=== PATIENT | male | born 1955 | race Two or more races ===

== ENCOUNTER 2018-04-10 11:45 | Inpatient (IN) | payer OTHER ==
[2018-04-10 11:52] VITALS: BMI 25.5
--- NOTE | 2018-04-10 12:28 | HP ---
CIWA Score - CIWA Score Nausea/Vomitin Muscle Tremors: 2 Anxiety: 2 Agitation: 2 Paroxysmal Sweats: 1-Minimal Palms Moist Orientation: 0-Oriented Tacttile Disturbances: 1-Very Mild Itch/Numbness Auditory Disturbances: 1-Very Mild Visual Disturbances: 1-Very Mild Sensitivity Headache: 2-Mild CIWA-Ar Total Score: 14 Admission ROS B[facility] - HPI Chief Complaint: i need help to stop drinking alcohol Allergies/Adverse Reactions: Allergies Allergy/AdvReac Type Severity Reaction Status Date / Time Penicillins Allergy Severe Rash Verified 04/10/18 13:28 fish derived Allergy Itching Verified 04/10/18 13:28 mushroom Allergy Hives Verified 04/10/18 13:28 History of Present Illness: this 62 years old male with alcohol dependence,seeking detox,withdrawal symptom, multiple admissions in the past,keep relapsing type 2 dm non compliance hepatitis c not treated weight loss s/p abdominal surgery at age of 50 years fell 2 weeks ago pain in the left lower ribs postitive ppd test poor oral hygiene no significant period of sobriety Exam Limitations: No Limitations - Ebola screening Have you traveled outside of the country in the last 21 days: No (N) Have you had contact with anyone from an Ebola affected area: No Have you been sick,other than usual withdrawal symptoms: No Do you have a fever: No - Review of Systems Constitutional: Loss of Appetite, Malaise, Night Sweats, Changes in sleep, Weakness, Unintentional Wgt. Loss EENT: reports: Nose Congestion, Other (poor oral hygiene missing teeth) Respiratory: reports: No Symptoms reported Cardiac: reports: No Symptoms Reported GI: reports: Nausea, Abdominal cramping : reports: No Symptoms Reported Musculoskeletal: reports: Back Pain, Muscle Pain Integumentary: reports: Dryness Neuro: reports: Headache, Tremors Endocrine: reports: No Symptoms Reported Hematology: reports: No Symptoms Reported Psychiatric: reports: No Sypmtoms Reported, Judgement Intact, Mood/Affect Appropiate, Orientated x3, Depressed (anxiety,depression,insomnia) Patient History - Patient Medical History Hx Anemia: Yes (no med) Hx Asthma: No Hx Chronic Obstructive Pulmonary Disease (COPD): No Hx Cancer: No Hx Cardiac Disorders: No Hx Congestive Heart Failure: No Hx Hypertension: No Hx Hypercholesterolemia: No Hx Pacemaker: No HX Cerebrovascular Accident: No Hx Seizures: Yes (IN THE 1970s) Hx Dementia: No Hx Diabetes: Yes (NO MEDS) Hx Gastrointestinal Disorders: No Hx Liver Disease: No Hx Genitourinary Disorders: No Hx Sexually Transmitted Disorders: Yes (syphilis) Hx Renal Disease (ESRD): No Hx Thyroid Disease: No Hx Human Immunodeficiency Virus (HIV): No Hx Hepatitis C: Yes Hx Depression: Yes Hx Suicide Attempt: No Hx Bipolar Disorder: No Hx Schizophrenia: No Other Medical History: no suicidal,no homicidal,injury left rib 2 weeks ago - Patient Surgical History Past Surgical History: Yes Hx Neurologic Surgery: No Hx Cataract Extraction: No Hx Cardiac Surgery: No Hx Lung Surgery: No Hx Breast Surgery: No Hx Breast Biopsy: No Hx Abdominal Surgery: Yes (for bleeding ulcer in 70's) Hx Appendectomy: No Hx Cholecystectomy: No Hx Genitourinary Surgery: No Hx Section: No Hx Orthopedic Surgery: No Anesthesia Reaction: No - PPD History Previous Implant?: Yes Documented Results: Positive w/o proof Date: 03/24/15 Results: 15 mm PPD to be Administered?: No - Smoking Cessation Smoking history: Current every day smoker Have you smoked in the past 12 months: Yes Aproximately how many cigarettes per day: 7 Cigars Per Day: 0 Hx Chewing Tobacco Use: No Initiated information on smoking cessation: Yes 'Breaking Loose' booklet given: 04/10/18 - Substance & Tx. History Hx Alcohol Use: Yes Hx Substance Use: No Substance Use Type: Alcohol Hx Substance Use Treatment: Yes ([facility] 12/27/15 to 12/31/15) - Substances Abused Alcohol Route: Oral Frequency: Daily Amount used: 3 of 6 packs of 12 ozs of beer Age of first use: 7 Date of Last Use: 04/10/18 Family Disease History - Family Disease History Family History: Denies Admission Physical Exam [facility] - Vital Signs Vital Signs: Vital Signs - 24 hr 04/10/18 11:50 Temperature 98.3 F Pulse Rate 80 Respiratory 18 Rate Blood Pressure 138/71 - Physical General Appearance: Yes: Moderate Distress, Tremorous, Irritable, Sweating, Anxious HEENTM: Yes: Normal ENT Inspection, CEM, Pharynx Normal, Other (poor dental hygiene missing teeth) Respiratory: Yes: Lungs Clear, Normal Breath Sounds, No Respiratory Distress, Other (pain in he left lower rib,tenderness on palpation) Breast: Yes: Within Normal Limits Cardiology: Yes: Within Normal Limits, Regular Rhythm, Regular Rate, S1, S2 Abdominal: Yes: Within Normal Limits, Normal Bowel Sounds, Non Tender, Flat, Soft, Surgical Scar Genitourinary: Yes: Within Normal Limits Back: Yes: Muscle Spasm Musculoskeletal: Yes: Back pain, Muscle Pain Extremities: Yes: Tremors Neurological: Yes: hospitality internship II-XII NML intact, Fully Oriented, Alert, Motor Strength 5/5 Integumentary: Yes: Dry Lymphatic: Yes: Within Normal Limits - Diagnostic (1) Alcohol dependence with uncomplicated withdrawal Current Visit: No Status: Acute (2) Nicotine dependence Current Visit: No Status: Chronic Qualifiers: Nicotine product type: cigarettes Substance use status: uncomplicated Qualified Code(s): F17.210 - Nicotine dependence, cigarettes, uncomplicated (3) DM2 (diabetes mellitus, type 2) Current Visit: Yes Status: Acute (4) Weight loss Current Visit: Yes Status: Acute (5) Poor oral hygiene Current Visit: Yes Status: Acute (6) Seizure Current Visit: Yes Status: Acute (7) Contusion of left chest wall Current Visit: Yes Status: Acute Cleared for Admission [facility] - Detox or Rehab [facility] Level of Care: Medically Managed Detox Regimen/Protocol: Librium [facility] Breath Alcohol Content Breath Alcohol Content: 0.135 Urine Drug Screen - Results Drug Screen Negative: Yes
[2018-04-10] MEDS ORDERED: LOPERAMIDE HCL 2 MG CAPSULE PO PRN (12:44)
[2018-04-10] MEDS ORDERED: P-EPHED 60MG/TRIPROLIDI 2.5MG TABLET PO PRN (12:44)
[2018-04-10] MEDS ORDERED: MAG HYDROX/AL HYDROX/SIMETH 30 ML UNIT-DOSE CUP PO PRN (12:44)
[2018-04-10] MEDS ORDERED: MENTHOL/PHENOL 1 EACH UD MM PRN (12:44)
[2018-04-10] MEDS ORDERED: guaiFENesin/D-METHORPHAN HB 10 ML UNIT-DOSE CUPS PO PRN (12:44)
[2018-04-10] MEDS ORDERED: MAGNESIUM CITRATE 300 ML BOTTLE PO PRN (12:44)
[2018-04-10] MEDS ORDERED: MAGNESIUM HYDROX 2400MG/30ML ORAL SUSPENSION 30 ML CUP PO PRN (12:44)
[2018-04-10] MEDS ORDERED: IBUPROFEN 400 MG TABLET (FP) PO PRN (12:44)
[2018-04-10] MEDS: chlordiazePOXIDE HCL 25 MG CAPSULE PO PRN (14:58)
[2018-04-10] MEDS: NICOTINE 14 MG/24 HOURS TOPICAL PATCH TD SCH (15:00)
[2018-04-10] MEDS ORDERED: COLLOIDAL OATMEAL 1 BAR EACH TP PRN (15:01)
[2018-04-10 17:38] LABS: URINE APPEARANCE CLEAR; URINE BILIRUBIN NEGATIVE (<2.0 mg/dL); URINE COLOR YELLOW; URINE GLUCOSE (UA) NEGATIVE (NEGATIVE); URINE KETONE NEGATIVE (NEGATIVE); URINE LEUK ESTERASE NEGATIVE (NEGATIVE); URINE NITRITE NEGATIVE (NEGATIVE); URINE PROTEIN NEGATIVE (NEGATIVE); URINE UROBILINOGEN NEGATIVE mg/dL (0.2-1.0)
[2018-04-10] MEDS: chlordiazePOXIDE HCL 25 MG CAPSULE PO SCH ×2 (17:41→22:42)
[2018-04-10] MEDS ORDERED: CYCLOBENZAPRINE HCL 10 MG TABLET (FP) PO ONE (18:31)
[2018-04-10] MEDS: LIDOCAINE 5% TOPICAL PATCH TP SCH (19:58)
[2018-04-10] MEDS: THIAMINE HCL 100 MG TABLET (FP) PO SCH (22:42)
[2018-04-10] MEDS: ACETAMINOPHEN 325 MG TABLET (FP) PO PRN (22:42)
[2018-04-10] MEDS: MELATONIN 5 MG TABLETS PO PRN (22:43)
[2018-04-10] MEDS: IBUPROFEN 600 MG TABLET (FP) PO PRN (22:45)
[2018-04-10] MEDS: LIDOCAINE PATCH REMOVAL MC SCH (22:45)
[2018-04-11] MEDS: chlordiazePOXIDE HCL 25 MG CAPSULE PO SCH ×4 (05:18→22:19)
[2018-04-11] MEDS: IBUPROFEN 600 MG TABLET (FP) PO PRN (05:18)
--- NOTE | 2018-04-11 07:37 | CONSULT ---
[facility] Psychiatric Consult - Data Date of interview: 04/11/18 Admission source: [facility] Identifying data: This is a 62 years old male, single, unemployed, homeless, with no financial support, ambulates with Cane, with psychiatric hospitalization history, with alcohol , cannabis and nicotine dependence, seeking detox and reporting alcohol withdrawal symptoms,. Denies suicdial, homicidal history. Substance Abuse History: Smoking history: Current every day smoker. Have you smoked in the past 12 months: Yes. Aproximately how many cigarettes per day: 7. Cigars Per Day: 0. Hx Chewing Tobacco Use: No. Initiated information on smoking cessation: Yes. 'Breaking Loose' booklet given: 04/10/18. - Substance & Tx. History. Hx Alcohol Use: Yes. Hx Substance Use: No. Substance Use Type : Alcohol. Hx Substance Use Treatment: Yes ([facility] 12/27/15 to 12/31/15). - Substances Abused. Alcohol. Route: Oral. Frequency: Daily. Amount used: 3 of 6 packs of 12 ozs of beer. Age of first use: 7. Date of Last Use: Medical History: HepC+, PPD + history, S/P Abdomina, surgery on above 12 years ago, Syncope history, Seizure history, DM-2, HTN, Asthma, Psychiatric History: Patient reports history of depression and anxiety, reports unclear psychiatric admission on about 5 years ago at [facility], reports no medications takoing prior to admission. Denies suicdial, homicidal history Physical/Sexual Abuse/Trauma History: Denies Additional Comment: Obnservation. Detox Unit Care Protocol Mental Status Exam - Mental Status Exam Alert and Oriented to: Person Cognitive Function: Fair Patient Appearance: Unkempt Mood: Sad Affect: Flat Patient Behavior: Sedated Speech Pattern: Delayed Voice Loudness: Mildly Soft/Quiet, Limited Variation Thought Disorder: Being Controlled Hallucinations: Denies Suicidal Ideation: Denies Homicidal Ideation: Denies Insight/Judgement: Fair Sleep: Difficulty falling asleep Appetite: Weight loss Muscle strength/Tone: Mild Hypotonicity Gait/Station: Deferred Additional Comments: Obnservation. Detox Unit Care Protocol Psychiatric Findings - Problem List ([place] 1, 2,3) (1) Insomnia secondary to depression with anxiety Current Visit: Yes Status: Acute (2) Alcohol dependence Current Visit: No Status: Acute (3) Alcohol dependence with uncomplicated withdrawal Current Visit: No Status: Acute (4) Alcohol induced sleep disorders Current Visit: No Status: Acute (5) Cannabis dependence Current Visit: No Status: Chronic (6) Cellulitis of both feet Current Visit: No Status: Chronic (7) Hepatitis C carrier Current Visit: No Status: Chronic (8) Nicotine dependence Current Visit: No Status: Chronic Qualifiers: Nicotine product type: cigarettes Substance use status: uncomplicated Qualified Code(s): F17.210 - Nicotine dependence, cigarettes, uncomplicated (9) Use of cane as ambulatory aid Current Visit: No Status: Chronic (10) Substance induced mood disorder Current Visit: No Status: Suspected - Initial Treatment Plan Initial Treatment Plan: Obnservation. Detox Unit Care Protocol
[2018-04-11] MEDS: PRENATAL VITAMINS W/ FOLIC ACID TABLET (FP) PO SCH (10:12)
[2018-04-11] MEDS: NICOTINE 14 MG/24 HOURS TOPICAL PATCH TD SCH (10:13)
[2018-04-11] MEDS: LIDOCAINE 5% TOPICAL PATCH TP SCH (10:14)
[2018-04-11 10:18] LABS: HEMOGLOBIN 11.1 GM/dL (11.7-16.9); MCHC 30.9 g/dl (32.0-35.9); MEAN CELL VOLUME 77.6 fl (80-96); MEAN PLT VOLUME 9.5 fl (7.5-11.1); PLATELET COUNT 92 K/MM3 (134-434); RBC 4.64 M/mm3 (4.00-5.60); RDW 17.9 % (11.9-15.9); WHITE BLOOD COUNT 3.6 K/mm3 (4.0-10.0)
[2018-04-11 10:39] LABS: ALK PHOS 104 U/L (45-117); ANION GAP 8 MMOL/L (8-16); BILIRUBIN,TOTAL 0.8 mg/dL (0.2-1); BLOOD UREA NITROGEN 7 mg/dL (7-18); CALCIUM 8.7 mg/dL (8.5-10.1); CHLORIDE 105 mmol/L (98-107); CO2 27 mmol/L (21-32); CREATININE 0.7 mg/dL (0.55-1.3); GLUCOSE,RANDOM 87 mg/dL (74-106); POTASSIUM 3.6 mmol/L (3.5-5.1); SGOT/AST 52 U/L (15-37); SGPT/ALT 38 U/L (13-61); SODIUM 139 mmol/L (136-145); TOT PROT 6.6 g/dl (6.4-8.2)
--- NOTE | 2018-04-11 10:43 | EKG ---
Test Reason : Blood Pressure : / mmHG Vent. Rate : 081 BPM Atrial Rate : 081 BPM P-R Int : 170 ms QRS Dur : 102 ms QT Int : 400 ms P-R-T Axes : 074 -18 078 degrees QTc Int : 464 ms SINUS RHYTHM WITH OCCASIONAL PREMATURE VENTRICULAR COMPLEXES AND PREMATURE ATRIAL COMPLEXES OTHERWISE NORMAL ECG WHEN COMPARED WITH ECG OF 21-MAR-2015 03:24, PREMATURE VENTRICULAR COMPLEXES ARE NOW PRESENT PREMATURE ATRIAL COMPLEXES ARE NOW PRESENT VENT. RATE HAS INCREASED BY 29 BPM T WAVE VARIATION Confirmed by LORENA IZAGUIRRE MD ([id number]) on 04/11/2018 10:42:32 AM Referred By: Confirmed By:LORENA IZAGUIRRE MD
[2018-04-11] MEDS ORDERED: IBUPROFEN 400 MG TABLET (FP) PO PRN (11:18)
--- NOTE | 2018-04-11 11:19 | PN ---
S CIWA - CIWA Score Nausea/Vomitin-No Nausea/No Vomiting Muscle Tremors: 4-Moderate,w/Arms Extend Anxiety: 3 Agitation: 3 Paroxysmal Sweats: 3 Orientation: 0-Oriented Tacttile Disturbances: 0-None Auditory Disturbances: 0-None Visual Disturbances: 0-None Headache: 0-None Present CIWA-Ar Total Score: 13 S Progress Note (SOAP) Subjective: body aches especially rib area d/t a fall down the stairs a week ago. I had x- ray taken at [facility] and i may have fractured ribs sweats irritable diarrhea Objective: 04/11/18 11:20 Vital Signs Temperature 98.0 F 04/11/18 09:08 Pulse Rate 52 L 04/11/18 09:08 Respiratory Rate 16 04/11/18 09:08 Blood Pressure 131/72 04/11/18 09:08 O2 Sat by Pulse Oximetry (%) Laboratory Tests 04/10/18 04/10/18 04/10/18 13:55 15:04 16:34 WBC RBC Hgb Hct MCV MCH MCHC RDW Plt Count MPV Sodium Potassium Chloride Carbon Dioxide Anion Gap BUN Creatinine Creat Clearance w eGFR POC Glucometer 100 93 Random Glucose Calcium Total Bilirubin AST ALT Alkaline Phosphatase Total Protein Albumin Urine Color Yellow Urine Appearance Clear Urine pH 5.0 Ur Specific [place] 1.011 Urine Protein Negative Urine Glucose (UA) Negative Urine Ketones Negative Urine Blood Negative Urine Nitrite Negative Urine Bilirubin Negative Urine Urobilinogen Negative Ur Leukocyte Esterase Negative 04/11/18 04/11/18 04/11/18 06:58 07:00 07:00 WBC 3.6 L RBC 4.64 Hgb 11.1 L Hct 36.0 MCV 77.6 L MCH 24.0 L MCHC 30.9 L RDW 17.9 H Plt Count 92 L D MPV 9.5 Sodium 139 Potassium 3.6 Chloride 105 Carbon Dioxide 27 Anion Gap 8 BUN 7 Creatinine 0.7 Creat Clearance w eGFR > 60 POC Glucometer 104 Random Glucose 87 Calcium 8.7 Total Bilirubin 0.8 AST 52 H ALT 38 Alkaline Phosphatase 104 Total Protein 6.6 Albumin 3.0 L Urine Color Urine Appearance Urine pH Ur Specific [place] Urine Protein Urine Glucose (UA) Urine Ketones Urine Blood Urine Nitrite Urine Bilirubin Urine Urobilinogen Ur Leukocyte Esterase rest of labs pending aaox 3 lying in bed no acute distress Assessment: 04/11/18 11:21 withdrawal sx Plan: continue detox increase fluids wheelchair ordered for ambulating
[2018-04-11] MEDS: ACETAMINOPHEN 325 MG TABLET (FP) PO PRN (17:44)
[2018-04-11] MEDS: LIDOCAINE PATCH REMOVAL MC SCH (22:19)
[2018-04-11] MEDS: THIAMINE HCL 100 MG TABLET (FP) PO SCH (22:19)
[2018-04-11] MEDS: MELATONIN 5 MG TABLETS PO PRN (22:20)
[2018-04-12] MEDS: chlordiazePOXIDE HCL 25 MG CAPSULE PO PRN (01:13)
[2018-04-12] MEDS: chlordiazePOXIDE HCL 25 MG CAPSULE PO SCH ×2 (06:43→11:00)
[2018-04-12 09:57] LABS: RPR REACTIVE 1:1 (NONREACTIVE)
[2018-04-12] MEDS: PRENATAL VITAMINS W/ FOLIC ACID TABLET (FP) PO SCH (11:00)
[2018-04-12] MEDS: NICOTINE 14 MG/24 HOURS TOPICAL PATCH TD SCH (11:01)
[2018-04-12] MEDS: LIDOCAINE 5% TOPICAL PATCH TP SCH (11:01)
--- NOTE | 2018-04-12 12:21 | PN ---
[facility] CIWA - CIWA Score Nausea/Vomitin-No Nausea/No Vomiting Muscle Tremors: 3 Anxiety: 3 Agitation: 3 Paroxysmal Sweats: 3 Orientation: 0-Oriented Tacttile Disturbances: 0-None Auditory Disturbances: 0-None Visual Disturbances: 0-None Headache: 0-None Present CIWA-Ar Total Score: 12 S Progress Note (SOAP) Subjective: sweats dry scaly feet agitation anxiety body aches Objective: 04/12/18 12:20 Vital Signs Temperature 98.8 F 04/12/18 09:42 Pulse Rate 50 L 04/12/18 09:42 Respiratory Rate 18 04/12/18 09:42 Blood Pressure 148/77 04/12/18 09:42 O2 Sat by Pulse Oximetry (%) Laboratory Tests 04/10/18 04/10/18 04/10/18 13:55 15:04 16:34 WBC RBC Hgb Hct MCV MCH MCHC RDW Plt Count MPV Sodium Potassium Chloride Carbon Dioxide Anion Gap BUN Creatinine Creat Clearance w eGFR POC Glucometer 100 93 Random Glucose Calcium Total Bilirubin AST ALT Alkaline Phosphatase Total Protein Albumin Urine Color Yellow Urine Appearance Clear Urine pH 5.0 Ur Specific [place] 1.011 Urine Protein Negative Urine Glucose (UA) Negative Urine Ketones Negative Urine Blood Negative Urine Nitrite Negative Urine Bilirubin Negative Urine Urobilinogen Negative Ur Leukocyte Esterase Negative RPR Titer 04/11/18 04/11/18 04/11/18 06:58 07:00 07:00 WBC 3.6 L RBC 4.64 Hgb 11.1 L Hct 36.0 MCV 77.6 L MCH 24.0 L MCHC 30.9 L RDW 17.9 H Plt Count 92 L D MPV 9.5 Sodium 139 Potassium 3.6 Chloride 105 Carbon Dioxide 27 Anion Gap 8 BUN 7 Creatinine 0.7 Creat Clearance w eGFR > 60 POC Glucometer 104 Random Glucose 87 Calcium 8.7 Total Bilirubin 0.8 AST 52 H ALT 38 Alkaline Phosphatase 104 Total Protein 6.6 Albumin 3.0 L Urine Color Urine Appearance Urine pH Ur Specific [place] Urine Protein Urine Glucose (UA) Urine Ketones Urine Blood Urine Nitrite Urine Bilirubin Urine Urobilinogen Ur Leukocyte Esterase RPR Titer 04/11/18 04/12/18 07:00 06:45 WBC RBC Hgb Hct MCV MCH MCHC RDW Plt Count MPV Sodium Potassium Chloride Carbon Dioxide Anion Gap BUN Creatinine Creat Clearance w eGFR POC Glucometer 115 Random Glucose Calcium Total Bilirubin AST ALT Alkaline Phosphatase Total Protein Albumin Urine Color Urine Appearance Urine pH Ur Specific [place] Urine Protein Urine Glucose (UA) Urine Ketones Urine Blood Urine Nitrite Urine Bilirubin Urine Urobilinogen Ur Leukocyte Esterase RPR Titer Reactive 1:1 H aaox3 ambulating with wheelchair no acute distress Assessment: 04/12/18 12:20 withdrawal sx Plan: continue detox increase fluids motrin 800mg prn tinactin cream lac hydrin lotion
[2018-04-12 15:17] LABS: TREPONEMA ANTIBODY NON REACTIVE (NONREACTIVE)
[2018-04-12] MEDS: AMMONIUM LACTATE 12% LOTION 225 GM BOTTLE TP SCH ×2 (15:43→22:23)
[2018-04-12] MEDS: chlordiazePOXIDE 5 MG CAPSULE PO SCH ×2 (18:06→22:23)
[2018-04-12] MEDS: TOLNAFTATE 1% CREAM 15 GM TUBE TP SCH (22:23)
[2018-04-12] MEDS: THIAMINE HCL 100 MG TABLET (FP) PO SCH (22:23)
[2018-04-12] MEDS: LIDOCAINE PATCH REMOVAL MC SCH (22:23)
[2018-04-13] MEDS: ACETAMINOPHEN 325 MG TABLET (FP) PO PRN (03:14)
[2018-04-13] MEDS: MELATONIN 5 MG TABLETS PO PRN (03:15)
[2018-04-13] MEDS: chlordiazePOXIDE 5 MG CAPSULE PO SCH ×2 (05:48→11:02)
--- NOTE | 2018-04-13 10:30 | PN ---
[facility] Progress Note (SOAP) Subjective: interrupted sleep sweats Objective: 04/13/18 10:29 Vital Signs Temperature 98.4 F 04/13/18 10:08 Pulse Rate 60 04/13/18 10:08 Respiratory Rate 18 04/13/18 10:08 Blood Pressure 118/78 04/13/18 10:08 O2 Sat by Pulse Oximetry (%) aaox3 ambulating no acute distress Assessment: 04/13/18 10:30 mild withdrawal sx Plan: continue detox increase fluids d/c in am
[2018-04-13] MEDS: TOLNAFTATE 1% CREAM 15 GM TUBE TP SCH ×2 (10:57→23:11)
[2018-04-13] MEDS: NICOTINE 14 MG/24 HOURS TOPICAL PATCH TD SCH (10:57)
[2018-04-13] MEDS: PRENATAL VITAMINS W/ FOLIC ACID TABLET (FP) PO SCH (10:57)
[2018-04-13] MEDS: LIDOCAINE 5% TOPICAL PATCH TP SCH (10:58)
[2018-04-13] MEDS: AMMONIUM LACTATE 12% LOTION 225 GM BOTTLE TP SCH ×2 (11:00→23:10)
[2018-04-13] MEDS: chlordiazePOXIDE HCL 10 MG CAPSULE PO SCH ×2 (17:15→23:11)
[2018-04-13] MEDS: LIDOCAINE PATCH REMOVAL MC SCH (23:10)
[2018-04-13] MEDS: THIAMINE HCL 100 MG TABLET (FP) PO SCH (23:11)
[2018-04-14] MEDS: chlordiazePOXIDE HCL 10 MG CAPSULE PO SCH ×2 (05:34→12:02)
--- NOTE | 2018-04-14 09:02 | DS ---
[facility] Detox Discharge Summary Admission Date: 04/10/18 Discharge Date: 04/14/18 - History Present History: Alcohol Dependence, Cannabis Dependence - Physical Exam Results Vital Signs: Vital Signs Temperature 97.7 F 04/14/18 08:10 Pulse Rate 44 L 04/14/18 08:10 Respiratory Rate 04/14/18 08:10 Blood Pressure 158/78 04/14/18 08:10 O2 Sat by Pulse Oximetry (%) - Treatment Hospital Course: Detox Protocol Followed, Detoxed Safely, Responded well, Discharged Condition Good, Rehab Referral Accepted - Medication Discharge Medications: Ambulatory Orders Clotrimazole/Betamet Diprop [Lotrisone -] 1 applic TP BID #1 tube 01/28/16 Tolnaftate 1% Cream [Tinactin 1% Cream -] 1 applic TP BID #1 cream..g. 01/28/16 - Diagnosis (1) Contusion of left chest wall Current Visit: Yes Status: Acute (2) DM2 (diabetes mellitus, type 2) Current Visit: Yes Status: Acute (3) Essential hypertension Current Visit: Yes Status: Acute (4) Insomnia secondary to depression with anxiety Current Visit: Yes Status: Acute (5) Poor oral hygiene Current Visit: Yes Status: Acute (6) Seizure Current Visit: Yes Status: Acute (7) Seizure Current Visit: Yes Status: Acute (8) Syncope Current Visit: Yes Status: Acute (9) Weight loss Current Visit: Yes Status: Acute (10) Alcohol dependence Current Visit: No Status: Acute (11) Alcohol dependence with uncomplicated withdrawal Current Visit: No Status: Acute (12) Alcohol induced sleep disorders Current Visit: No Status: Acute (13) Insomnia Current Visit: No Status: Acute (14) Rash, skin Current Visit: No Status: Acute (15) Cannabis dependence Current Visit: No Status: Chronic (16) Cellulitis of both feet Current Visit: No Status: Chronic (17) Diabetes Current Visit: No Status: Chronic (18) Hepatitis C carrier Current Visit: No Status: Chronic (19) Nicotine dependence Current Visit: No Status: Chronic Qualifiers: Nicotine product type: cigarettes Substance use status: uncomplicated Qualified Code(s): F17.210 - Nicotine dependence, cigarettes, uncomplicated (20) Scoliosis of thoracic spine Current Visit: No Status: Chronic (21) Use of cane as ambulatory aid Current Visit: No Status: Chronic (22) Substance induced mood disorder Current Visit: No Status: Suspected - AMA Did Patient Leave Against Medical Advice: No
[2018-04-14] MEDS: AMMONIUM LACTATE 12% LOTION 225 GM BOTTLE TP SCH (10:00)
[2018-04-14] MEDS: PRENATAL VITAMINS W/ FOLIC ACID TABLET (FP) PO SCH (10:05)
[2018-04-14] MEDS: NICOTINE 14 MG/24 HOURS TOPICAL PATCH TD SCH (10:40)
[2018-04-14 11:43] VITALS: BP 117/66; PULSE 54; TEMP 98.1
[2018-04-14] MEDS: LIDOCAINE 5% TOPICAL PATCH TP SCH (12:03)
== END 2018-04-14 10:40 | disposition home or self-care (01) | DRG 775 ==
LOC: YASAS 11:45 → Y6N 14:08
PROC: HZ2ZZZZ Detoxification Services for Substance Abuse Treatment (ICD-10-PCS; principal; 2018-04-10)
DX: F10.230 Alcohol dependence with withdrawal, uncomplicated (principal); F10.282 Alcohol dependence with alcohol-induced sleep disorder; F17.210 Nicotine dependence, cigarettes, uncomplicated; F19.24 Other psychoactive substance dependence with psychoactive substance-induced mood disorder; F51.02 Adjustment insomnia; E11.9 Type 2 diabetes mellitus without complications; I10 Essential (primary) hypertension; K08.9 Disorder of teeth and supporting structures, unspecified; G47.00 Insomnia, unspecified; R12 Heartburn; L03.116 Cellulitis of left lower limb; L03.115 Cellulitis of right lower limb; B18.2 Chronic viral hepatitis C; M41.9 Scoliosis, unspecified; R26.2 Difficulty in walking, not elsewhere classified; Z99.89 Dependence on other enabling machines and devices; Z88.0 Allergy status to penicillin; Z91.013 Allergy to seafood; Z86.69 Personal history of other diseases of the nervous system and sense organs; Z87.898 Personal history of other specified conditions; Z87.438 Personal history of other diseases of male genital organs; S20.212D Contusion of left front wall of thorax, subsequent encounter; X58.XXXD Exposure to other specified factors, subsequent encounter
CPT/HCPCS: 36415; 71045-TC-FY; 71101-TC-FY; 80053; 81003; 82962; 85027; 86593; 86780; 93005; 93010